=== PATIENT | female | born 1960 | race Asian ===

== ENCOUNTER 2016-12-30 21:01 | Inpatient (IN) | payer MEDICAID ==
[~2016-12-30] VITALS: Ht 162.6 cm; Wt 77.2 kg
[2016-12-30] MEDS ORDERED: METO50 PO (21:08)
[2016-12-30] MEDS ORDERED: LORA0.5T2 PO (21:08)
[2016-12-30] MEDS ORDERED: HYDR25TA PO (21:08)
[2016-12-30] MEDS ORDERED: ISOS30TA6 PO (21:08)
[2016-12-30] MEDS ORDERED: ZOLP5 PO (21:08)
[2016-12-30] MEDS ORDERED: AMLO-512 PO (21:08)
[2016-12-30] MEDS ORDERED: HYDR-4268 TP (21:12)
[2016-12-30 21:17] LABS: GLUCOSE,POINT OF CARE 115 MG/DL (70-110)
[2016-12-30] MEDS ORDERED: SODIUM CHLORIDE 0.9% 1,000 ML IV ONE ×2 (21:30)
[2016-12-30] MEDS ORDERED: 0.9% SODIUM CHLORIDE 10 ML SYRINGE IVP PRN (21:30)
[2016-12-30 21:36] LABS: BASOPHILS # (AUTO) 0.06 K/uL (0.00-0.20); BASOPHILS % (AUTO) 0.5 % (0.0-2.0); EOSINOPHILS # (AUTO) 0.01 K/uL (0.00-0.70); EOSINOPHILS % (AUTO) 0.05 % (1.0-6.0); HEMATOCRIT 45.9 % (36-46); HEMOGLOBIN 14.8 g/dL (12.0-16.0); LYMPHOCYTES # (AUTO) 1.6 K/uL (1.0-4.8); LYMPHOCYTES % (AUTO) 13.1 % (22.0-44.0); MEAN CORPUSCULAR HEMOGLOBIN 24.2 pg (26.0-34.0); MEAN CORPUSCULAR HGB CONC 32.3 G/dL (31.0-37.0); MEAN CORPUSCULAR VOLUME 75 fL (80-100); MONOCYTES # (AUTO) 1.5 K/uL (0.1-1.0); MONOCYTES % (AUTO) 12.3 % (2.0-9.0); NEUTROPHILS % (AUTO) 74.1 % (40.0-70.0); PLATELET COUNT (AUTO) 329 K/uL (150-450); RED BLOOD CELL COUNT(AUTO) 6.14 MIL/uL (4.00-5.20); RED CELL DISTRIBUTION WIDTH 13.3 % (11.5-14.5); WHITE BLOOD COUNT (AUTO) 12.2 K/uL (4.5-11.0)
[2016-12-30 21:48] LABS: ANION GAP 12 mmol/L (8-16); CALCIUM, TOTAL 10.3 mg/dL (8.8-10.5); CARBON DIOXIDE 29 mmol/L (22-29); CHLORIDE 95 mmol/L (98-107); CREATININE 1.84 mg/dL (0.60-1.30); GLOMERULAR FILTR. RATE CALC 28 mL/min (>60); POTASSIUM 4.4 mmol/L (3.5-5.1); SODIUM SERUM 136 mmol/L (136-145); UREA NITROGEN, BLOOD 72 mg/dL (7-18)
[2016-12-30 21:54] LABS: ALANINE AMINOTRANSFERASE 72 U/L (12-78); ALBUMIN 4.6 g/dL (3.4-5.0); ASPARTATE AMINOTRANSFERASE 149 U/L (15-37); BILIRUBIN,TOTAL 1.5 mg/dL (0.1-1.0); TOTAL PROTEIN, SERUM 9.5 g/dL (6.4-8.2)
[2016-12-30 22:06] LABS: APPEARANCE,URINE CLOUDY (CLEAR); GLUCOSE, URINE (UA) 100 mg/dL (NEGATIVE); KETONES,URINE NEGATIVE (NEGATIVE); LEUKOCYTE ESTERASE ,URINE SMALL (NEGATIVE); OCCULT BLOOD,URINE TRACE (NEGATIVE); PH,URINE 5.5 (5.0-8.0); PROTEIN,URINE POS 1+ (NEGATIVE)
[2016-12-30 22:09] LABS: ADD UA MICROSCOPIC YES
[2016-12-30 22:10] LABS: AMORPHOUS SEDIMENT,UR Few /LPF (None Seen); COARSE GRANULAR CASTS,URINE 0-2 /LPF (None Seen); HYALINE CASTS, URINE 0-2 /LPF (None Seen); SQUAMOUS EPITHELIAL CELL,UR Few /LPF (None Seen)
[2016-12-30] MEDS ORDERED: LEVOFLOXACIN 750 MG/D5% WATER 150 ML IV ONE (22:15)
[2016-12-30] MEDS ORDERED: PIPERACILLIN/TAZO 3.375 GM/D5W 50 ML IV ONE (22:15)
[2016-12-30 22:17] LABS: LACTIC ACID 3.3 mmol/L (0.4-2.0)
[2016-12-30 22:25] LABS: RBC MORPHOLOGY COMMENT ABNORMAL RBC MORPH
[2016-12-30 22:38] LABS: PROCALCITONIN (PCT) < 0.05 ng/mL (<0.50)
[2016-12-30 23:31] LABS: REFLEX LACTIC ACID? YES YES
[2016-12-31] MEDS ORDERED: LORazepam 2 MG/ML VIAL IVP ONE (01:00)
[2016-12-31] MEDS ORDERED: ACETAMINOPHEN 1000 MG/ISO-OSM 100 ML IV ONE (01:00)
[2016-12-31 01:32] LABS: GLUCOSE,POINT OF CARE 108 MG/DL (70-110)
[2016-12-31] MEDS ORDERED: HYDROCODONE/ACETAMINOPHEN 5-325 MG TABLET PO PRN ×2 (03:45→08:15)
[2016-12-31] MEDS ORDERED: *CLINICAL-LEVOFLOXACIN IVPB DOSING CLINICAL ONE ×2 (03:45)
[2016-12-31] MEDS ORDERED: ACETAMINOPHEN 325 MG TABLET PO PRN (03:45)
[2016-12-31] MEDS ORDERED: MORPHINE SULFATE 2 MG/ML SYRINGE IVP PRN ×2 (03:45→08:15)
[2016-12-31 05:33] VITALS: BP 152/89
[2016-12-31 07:14] VITALS: BP 158/78
[2016-12-31] MEDS ORDERED: METO100T5 PO (07:44)
[2016-12-31] MEDS ORDERED: PIPERACILLIN/TAZO 3.375 GM/D5W 50 ML IV ONE (08:00)
[2016-12-31 08:15] LABS: BASOPHILS # (AUTO) 0.05 K/uL (0.00-0.20); BASOPHILS % (AUTO) 0.5 % (0.0-2.0); EOSINOPHILS # (AUTO) 0.01 K/uL (0.00-0.70); EOSINOPHILS % (AUTO) 0.11 % (1.0-6.0); HEMATOCRIT 39.7 % (36-46); HEMOGLOBIN 12.7 g/dL (12.0-16.0); LYMPHOCYTES # (AUTO) 1.9 K/uL (1.0-4.8); LYMPHOCYTES % (AUTO) 19.1 % (22.0-44.0); MEAN CORPUSCULAR HEMOGLOBIN 24.2 pg (26.0-34.0); MEAN CORPUSCULAR HGB CONC 32.1 G/dL (31.0-37.0); MEAN CORPUSCULAR VOLUME 75 fL (80-100); MONOCYTES # (AUTO) 1.2 K/uL (0.1-1.0); MONOCYTES % (AUTO) 12.4 % (2.0-9.0); NEUTROPHILS # (AUTO) 6.6 K/uL (1.8-7.7); NEUTROPHILS % (AUTO) 67.9 % (40.0-70.0); PLATELET COUNT (AUTO) 296 K/uL (150-450); RED BLOOD CELL COUNT(AUTO) 5.28 MIL/uL (4.00-5.20); WHITE BLOOD COUNT (AUTO) 9.7 K/uL (4.5-11.0)
[2016-12-31] MEDS ORDERED: ZOLPIDEM TARTRATE 5 MG TABLET PO PRN (08:15)
[2016-12-31] MEDS ORDERED: ONDANSETRON HCL 4 MG/2 ML VIAL IVP PRN (08:15)
[2016-12-31] MEDS ORDERED: IPRATROPIUM BROMIDE 0.5 MG/2.5 ML NEB SOLUTION NEB PRN (08:15)
[2016-12-31] MEDS ORDERED: MAGNESIUM HYDROXIDE SUSPENSION 30 ML UDCUP PO PRN (08:15)
[2016-12-31] MEDS ORDERED: BISACODYL 10 MG RECTAL RECTAL SUPPOSITORY PR PRN (08:15)
[2016-12-31] MEDS ORDERED: ALBUTEROL SULFATE 2.5 MG/0.5 ML NEB SOLUTION NEB PRN (08:15)
[2016-12-31] MEDS ORDERED: CefTRIAXone SODIUM 250 MG in DEXTROSE 5%-WATER 50 ML IV SCH (08:30)
[2016-12-31 08:34] LABS: ALBUMIN 3.6 g/dL (3.4-5.0); BILIRUBIN,TOTAL 1.6 mg/dL (0.1-1.0); CALCIUM, TOTAL 9.2 mg/dL (8.8-10.5); CREATININE 1.33 mg/dL (0.60-1.30); POTASSIUM 3.5 mmol/L (3.5-5.1)
[2016-12-31] MEDS: METOPROLOL TARTRATE 50 MG TABLET PO SCH ×2 (09:00→20:28)
[2016-12-31] MEDS: ASPIRIN 81 MG EC TABLET PO SCH (09:00)
[2016-12-31] MEDS: ISOSORBIDE MONONITRATE 30 MG ER TABLET PO SCH (09:00)
[2016-12-31] MEDS ORDERED: ENOXAPARIN SODIUM 40 MG/0.4 ML PF SYRINGE SQ SCH (09:00)
[2016-12-31] MEDS: DOCUSATE SODIUM 100 MG CAPSULE PO SCH ×2 (09:00→20:28)
[2016-12-31] MEDS: AmLODIPine BESYLATE 10 MG TABLET PO SCH (09:00)
[2016-12-31] MEDS: PANTOPRAZOLE SODIUM 40 MG/VIAL IVP SCH (12:01)
[2016-12-31 12:05] VITALS: BP 156/84
[2016-12-31] MEDS: SODIUM CHLORIDE 0.9% 1,000 ML IV SCH (12:42)
[2016-12-31] MEDS: PIPERACILLIN/TAZO 3.375 GM/D5W 50 ML IV SCH ×2 (13:29→20:26)
[2016-12-31 16:07] VITALS: BP 167/90
[2016-12-31] MEDS: CefTRIAXone 1 GM/DEXTROSE 50 ML IV SCH (18:23)
[2016-12-31] MEDS: OFLOXACIN 0.3% 5 ML OPHTHALMIC SOLUTION OU SCH (20:00)
[2016-12-31] MEDS ORDERED: OFLOXACIN 0.3% 5 ML OPHTHALMIC SOLUTION OU SCH (20:00)
[2016-12-31] MEDS ORDERED: CHOL500050 PO (21:43)
[2016-12-31] MEDS ORDERED: METF500T4 PO (21:43)
[2016-12-31] MEDS ORDERED: ATOR40TA71 PO (21:43)
[2016-12-31] MEDS ORDERED: FENO134C PO (21:43)
[2016-12-31] MEDS ORDERED: FLUO-125 PO (21:43)
[2017-01-01] MEDS: LORazepam 2 MG/ML VIAL IVP PRN ×4 (00:43→20:16)
[2017-01-01] MEDS: OFLOXACIN 0.3% 5 ML OPHTHALMIC SOLUTION OU SCH ×6 (04:00→20:00)
[2017-01-01] MEDS: PIPERACILLIN/TAZO 3.375 GM/D5W 50 ML IV SCH ×3 (04:45→20:34)
[2017-01-01] MEDS: SODIUM CHLORIDE 0.9% 1,000 ML IV SCH (06:42)
[2017-01-01 08:05] VITALS: BP 155/95
[2017-01-01] MEDS ORDERED: ACETAMINOPHEN 650 MG RECTAL SUPPOSITORY PR PRN (09:00)
[2017-01-01] MEDS: AmLODIPine BESYLATE 10 MG TABLET PO SCH (09:00)
[2017-01-01] MEDS: ASPIRIN 81 MG EC TABLET PO SCH (09:00)
[2017-01-01] MEDS: METOPROLOL TARTRATE 50 MG TABLET PO SCH ×2 (09:00→20:47)
[2017-01-01] MEDS: DOCUSATE SODIUM 100 MG CAPSULE PO SCH ×2 (09:00→20:47)
[2017-01-01] MEDS: ISOSORBIDE MONONITRATE 30 MG ER TABLET PO SCH (09:00)
[2017-01-01] MEDS: PANTOPRAZOLE SODIUM 40 MG/VIAL IVP SCH (09:07)
[2017-01-01] MEDS: HEPARIN SODIUM,PORCINE 5,000 UNITS/ML VIAL SQ SCH ×2 (09:23→17:27)
[2017-01-01 11:43] VITALS: BP 158/93
[2017-01-01] MEDS ORDERED: FLUO-191 PO (11:50)
[2017-01-01 12:50] LABS: BASOPHILS % (AUTO) 0.3 % (0.0-2.0); EOSINOPHILS % (AUTO) 0 % (1.0-6.0); HEMATOCRIT 36.5 % (36-46); HEMOGLOBIN 11.9 g/dL (12.0-16.0); LYMPHOCYTES # (AUTO) 1.2 K/uL (1.0-4.8); MEAN CORPUSCULAR HEMOGLOBIN 24.4 pg (26.0-34.0); MEAN CORPUSCULAR HGB CONC 32.6 G/dL (31.0-37.0); MEAN CORPUSCULAR VOLUME 75 fL (80-100); MONOCYTES # (AUTO) 0.9 K/uL (0.1-1.0); MONOCYTES % (AUTO) 15.4 % (2.0-9.0); NEUTROPHILS # (AUTO) 3.8 K/uL (1.8-7.7); NEUTROPHILS % (AUTO) 64.3 % (40.0-70.0); PLATELET COUNT (AUTO) 281 K/uL (150-450); RED BLOOD CELL COUNT(AUTO) 4.88 MIL/uL (4.00-5.20); RED CELL DISTRIBUTION WIDTH 13.9 % (11.5-14.5)
[2017-01-01 13:03] LABS: CREATININE 1.27 mg/dL (0.60-1.30); MAGNESIUM 2.2 mg/dL (1.80-2.40); PHOSPHORUS 2.3 mg/dL (2.5-4.9); POTASSIUM 3.6 mmol/L (3.5-5.1)
[2017-01-01 14:27] LABS: RBC MORPHOLOGY COMMENT ABNORMAL RBC MORPH
[2017-01-01 15:39] VITALS: BP 158/89
[2017-01-01] MEDS: CefTRIAXone 1 GM/DEXTROSE 50 ML IV SCH (17:27)
[2017-01-01 19:59] VITALS: BP 109/77
[2017-01-01] MEDS: ACETAMINOPHEN 325 MG TABLET PO PRN (20:46)
[2017-01-01] MEDS ORDERED: ACETAMINOPHEN 1000 MG/ISO-OSM 100 ML IV ONE (22:00)
[2017-01-01 23:32] VITALS: BP 148/83
[2017-01-02] MEDS: SODIUM CHLORIDE 0.9% 1,000 ML IV SCH (01:43)
[2017-01-02] MEDS: OFLOXACIN 0.3% 5 ML OPHTHALMIC SOLUTION OU SCH ×6 (04:00→21:42)
[2017-01-02 04:32] VITALS: BP 129/78
[2017-01-02] MEDS: PIPERACILLIN/TAZO 3.375 GM/D5W 50 ML IV SCH ×3 (05:08→21:29)
[2017-01-02 07:08] LABS: BASOPHILS # (AUTO) 0.02 K/uL (0.00-0.20); BASOPHILS % (AUTO) 0.3 % (0.0-2.0); EOSINOPHILS # (AUTO) 0.01 K/uL (0.00-0.70); HEMATOCRIT 35.9 % (36-46); HEMOGLOBIN 11.5 g/dL (12.0-16.0); LYMPHOCYTES # (AUTO) 1.9 K/uL (1.0-4.8); LYMPHOCYTES % (AUTO) 27.2 % (22.0-44.0); MEAN CORPUSCULAR HEMOGLOBIN 24.3 pg (26.0-34.0); MEAN CORPUSCULAR HGB CONC 31.9 G/dL (31.0-37.0); MEAN CORPUSCULAR VOLUME 76 fL (80-100); MONOCYTES # (AUTO) 1.2 K/uL (0.1-1.0); MONOCYTES % (AUTO) 16.9 % (2.0-9.0); NEUTROPHILS # (AUTO) 3.9 K/uL (1.8-7.7); NEUTROPHILS % (AUTO) 55.5 % (40.0-70.0); PLATELET COUNT (AUTO) 271 K/uL (150-450); RED BLOOD CELL COUNT(AUTO) 4.72 MIL/uL (4.00-5.20); RED CELL DISTRIBUTION WIDTH 13.7 % (11.5-14.5)
[2017-01-02 07:36] VITALS: BP 152/84
[2017-01-02 07:36] LABS: ALBUMIN 3.2 g/dL (3.4-5.0); BILIRUBIN,TOTAL 1.1 mg/dL (0.1-1.0); CREATININE 1.24 mg/dL (0.60-1.30); MAGNESIUM 2.4 mg/dL (1.80-2.40); POTASSIUM 3.7 mmol/L (3.5-5.1); TOTAL PROTEIN, SERUM 7.2 g/dL (6.4-8.2)
[2017-01-02] MEDS: ASPIRIN 81 MG EC TABLET PO SCH (09:00)
[2017-01-02] MEDS: METOPROLOL TARTRATE 50 MG TABLET PO SCH ×2 (09:00→21:43)
[2017-01-02] MEDS: AmLODIPine BESYLATE 10 MG TABLET PO SCH (09:00)
[2017-01-02] MEDS: ISOSORBIDE MONONITRATE 30 MG ER TABLET PO SCH (09:00)
[2017-01-02] MEDS: DOCUSATE SODIUM 100 MG CAPSULE PO SCH ×2 (09:00→21:44)
[2017-01-02] MEDS ORDERED: BARIUM SULFATE 0.1% SUSPENSION 450 ML BOTTLE ONE (09:30)
[2017-01-02] MEDS: PANTOPRAZOLE SODIUM 40 MG/VIAL IVP SCH (09:50)
[2017-01-02] MEDS: HEPARIN SODIUM,PORCINE 5,000 UNITS/ML VIAL SQ SCH ×3 (09:51→16:30)
[2017-01-02] MEDS: LORazepam 2 MG/ML VIAL IVP PRN ×2 (09:52→13:46)
[2017-01-02 10:57] VITALS: BP 124/62
[2017-01-02 12:57] LABS: CREATININE, URINE (mALB) 113.3 mg/dL (Not Estab.)
[2017-01-02] MEDS ORDERED: IOVERSOL 350 MG/ML 100 ML VIAL ONE (13:29)
[2017-01-02] MEDS ORDERED: SODIUM CHLORIDE 0.9% 100 ML ONE (13:29)
[2017-01-02 15:57] VITALS: BP 127/56
[2017-01-02] MEDS: CefTRIAXone 1 GM/DEXTROSE 50 ML IV SCH (16:30)
[2017-01-02 19:43] VITALS: BP 145/90
[2017-01-02 23:44] LABS: CALCIUM, TOTAL 8.7 mg/dL (8.8-10.5); CREATININE 1.03 mg/dL (0.60-1.30); POTASSIUM 3.4 mmol/L (3.5-5.1)
[2017-01-02 23:48] LABS: MAGNESIUM 2.1 mg/dL (1.80-2.40); PHOSPHORUS 3.1 mg/dL (2.5-4.9)
[2017-01-03] MEDS: ACETAMINOPHEN 325 MG TABLET PO PRN (00:02)
[2017-01-03] MEDS: LORazepam 2 MG/ML VIAL IVP PRN ×4 (00:04→15:56)
[2017-01-03 00:09] VITALS: BP 133/73
[2017-01-03] MEDS ORDERED: POTASSIUM CHLORIDE 20 MEQ ER TABLET PO PRN ×2 (00:30)
[2017-01-03] MEDS ORDERED: POTASSIUM CHLORIDE 10% 40 MEQ/30 ML LIQUID UDCUP NG PRN (01:30)
[2017-01-03] MEDS: OFLOXACIN 0.3% 5 ML OPHTHALMIC SOLUTION OU SCH ×7 (01:40→23:49)
[2017-01-03] MEDS: HEPARIN SODIUM,PORCINE 5,000 UNITS/ML VIAL SQ SCH ×4 (01:40→23:49)
[2017-01-03] MEDS ORDERED: SODIUM CHLORIDE 0.9% 500 ML IV ONE (02:42)
[2017-01-03] MEDS: LEVOFLOXACIN 250 MG/D5% WATER 50 ML IV SCH (02:52)
[2017-01-03 05:46] VITALS: BP 151/75
[2017-01-03] MEDS ORDERED: DEXTROSE 5%-WATER 1,000 ML IV ONE (06:45)
[2017-01-03 06:46] LABS: BASOPHILS % (AUTO) 0.3 % (0.0-2.0); EOSINOPHILS % (AUTO) 1.7 % (1.0-6.0); HEMOGLOBIN 11.9 g/dL (12.0-16.0); LYMPHOCYTES % (AUTO) 28.7 % (22.0-44.0); MEAN CORPUSCULAR VOLUME 76 fL (80-100); MONOCYTES # (AUTO) 0.7 K/uL (0.1-1.0); MONOCYTES % (AUTO) 9.9 % (2.0-9.0); NEUTROPHILS # (AUTO) 4.1 K/uL (1.8-7.7); NEUTROPHILS % (AUTO) 59.4 % (40.0-70.0); PLATELET COUNT (AUTO) 250 K/uL (150-450); RED BLOOD CELL COUNT(AUTO) 4.75 MIL/uL (4.00-5.20); RED CELL DISTRIBUTION WIDTH 14.2 % (11.5-14.5); WHITE BLOOD COUNT (AUTO) 6.9 K/uL (4.5-11.0)
[2017-01-03 07:20] LABS: ALBUMIN 3.1 g/dL (3.4-5.0); BILIRUBIN,TOTAL 0.9 mg/dL (0.1-1.0); CALCIUM, TOTAL 8.9 mg/dL (8.8-10.5); CREATININE 0.96 mg/dL (0.60-1.30); MAGNESIUM 2.1 mg/dL (1.80-2.40); POTASSIUM 3.9 mmol/L (3.5-5.1); TOTAL PROTEIN, SERUM 6.6 g/dL (6.4-8.2)
[2017-01-03 07:55] VITALS: BP 144/99
[2017-01-03] MEDS: DOCUSATE SODIUM 100 MG CAPSULE PO SCH ×2 (08:15→21:00)
[2017-01-03] MEDS: PANTOPRAZOLE SODIUM 40 MG/VIAL IVP SCH (08:15)
[2017-01-03] MEDS: ISOSORBIDE MONONITRATE 30 MG ER TABLET PO SCH (08:16)
[2017-01-03] MEDS: METOPROLOL TARTRATE 50 MG TABLET PO SCH ×2 (08:16→21:52)
[2017-01-03] MEDS: AmLODIPine BESYLATE 10 MG TABLET PO SCH (08:16)
[2017-01-03] MEDS: ASPIRIN 81 MG EC TABLET PO SCH (08:16)
[2017-01-03] MEDS: DEXTROSE 5%-WATER 1,000 ML IV SCH ×2 (09:18→23:45)
[2017-01-03 11:58] VITALS: BP 103/65
[2017-01-03 13:08] LABS: APPEARANCE,URINE CLOUDY (CLEAR); GLUCOSE, URINE (UA) 250 mg/dL (NEGATIVE); KETONES,URINE TRACE mg/dL (NEGATIVE); LEUKOCYTE ESTERASE ,URINE NEGATIVE (NEGATIVE); OCCULT BLOOD,URINE LARGE (NEGATIVE); PROTEIN,URINE NEGATIVE (NEGATIVE)
[2017-01-03 13:10] LABS: ADD UA MICROSCOPIC YES
[2017-01-03 13:13] LABS: RBC,URINE 26-50 /HPF (0-2); WBC,URINE 0-2 /HPF (0-5)
[2017-01-03 13:14] LABS: SQUAMOUS EPITHELIAL CELL,UR Rare /LPF (None Seen)
[2017-01-03 13:15] LABS: COARSE GRANULAR CASTS,URINE 0-2 /LPF (None Seen); HYALINE CASTS, URINE 0-2 /LPF (None Seen)
[2017-01-03 13:17] LABS: FINE GRANULAR CASTS,URINE 0-2 /LPF (None Seen)
[2017-01-03 15:27] VITALS: BP 136/87
[2017-01-03] MEDS: CefTRIAXone 1 GM/DEXTROSE 50 ML IV SCH (16:26)
[2017-01-03 20:06] VITALS: BP 126/81
[2017-01-04 00:32] VITALS: BP 134/77
[2017-01-04] MEDS: LEVOFLOXACIN 250 MG/D5% WATER 50 ML IV SCH (01:35)
[2017-01-04] MEDS: OFLOXACIN 0.3% 5 ML OPHTHALMIC SOLUTION OU SCH ×5 (04:05→20:28)
[2017-01-04 04:32] VITALS: BP 145/89
[2017-01-04 07:41] VITALS: BP 162/93
[2017-01-04] MEDS: PANTOPRAZOLE SODIUM 40 MG/VIAL IVP SCH (09:01)
[2017-01-04] MEDS: DOCUSATE SODIUM 100 MG CAPSULE PO SCH ×2 (09:02→20:30)
[2017-01-04] MEDS: HEPARIN SODIUM,PORCINE 5,000 UNITS/ML VIAL SQ SCH ×2 (09:02→17:09)
[2017-01-04] MEDS: ISOSORBIDE MONONITRATE 30 MG ER TABLET PO SCH (09:03)
[2017-01-04] MEDS: ASPIRIN 81 MG EC TABLET PO SCH (09:03)
[2017-01-04] MEDS: METOPROLOL TARTRATE 50 MG TABLET PO SCH ×2 (09:04→20:29)
[2017-01-04] MEDS: AmLODIPine BESYLATE 10 MG TABLET PO SCH (09:04)
[2017-01-04 11:37] VITALS: BP 119/79
[2017-01-04] MEDS: LORazepam 2 MG/ML VIAL IVP PRN (15:12)
[2017-01-04] MEDS: DEXTROSE 5%-WATER 1,000 ML IV SCH (15:15)
[2017-01-04 15:22] VITALS: BP 153/73
[2017-01-04] MEDS: CefTRIAXone 1 GM/DEXTROSE 50 ML IV SCH (17:10)
[2017-01-04 20:13] VITALS: BP 143/89
[2017-01-04] MEDS: OXYGEN THERAPY IH SCH (20:28)
[2017-01-05] MEDS: OFLOXACIN 0.3% 5 ML OPHTHALMIC SOLUTION OU SCH ×7 (00:08→23:32)
[2017-01-05] MEDS: HEPARIN SODIUM,PORCINE 5,000 UNITS/ML VIAL SQ SCH ×4 (00:08→23:31)
[2017-01-05 00:24] VITALS: BP 138/66
[2017-01-05] MEDS: LEVOFLOXACIN 250 MG/D5% WATER 50 ML IV SCH (02:05)
[2017-01-05] MEDS: LORazepam 2 MG/ML VIAL IVP PRN (02:16)
[2017-01-05] MEDS: DEXTROSE 5%-WATER 1,000 ML IV SCH ×2 (03:51→17:21)
[2017-01-05 04:41] VITALS: BP 148/88
[2017-01-05 07:56] VITALS: BP 160/84
[2017-01-05] MEDS: DOCUSATE SODIUM 100 MG CAPSULE PO SCH ×2 (09:00→19:57)
[2017-01-05 11:25] VITALS: BP 150/89
[2017-01-05] MEDS: PANTOPRAZOLE SODIUM 40 MG/VIAL IVP SCH (11:32)
[2017-01-05] MEDS: ASPIRIN 81 MG EC TABLET PO SCH (11:34)
[2017-01-05] MEDS: AmLODIPine BESYLATE 10 MG TABLET PO SCH (11:34)
[2017-01-05] MEDS: ISOSORBIDE MONONITRATE 30 MG ER TABLET PO SCH (11:34)
[2017-01-05] MEDS: METOPROLOL TARTRATE 50 MG TABLET PO SCH ×2 (11:35→21:33)
[2017-01-05] MEDS: OXYGEN THERAPY IH SCH ×2 (14:49→20:00)
[2017-01-05 15:07] VITALS: BP 142/75
[2017-01-05] MEDS: HydrALAZINE HCL 25 MG TABLET PO SCH ×2 (16:21→19:56)
[2017-01-05] MEDS: CefTRIAXone 1 GM/DEXTROSE 50 ML IV SCH (16:29)
[2017-01-05 16:52] LABS: ANION GAP 8 mmol/L (8-16); CALCIUM, TOTAL 8.7 mg/dL (8.8-10.5); CARBON DIOXIDE 29 mmol/L (22-29); CHLORIDE 101 mmol/L (98-107); CREATININE 0.83 mg/dL (0.60-1.30); GLOMERULAR FILTR. RATE CALC > 60 mL/min (>60); SODIUM SERUM 138 mmol/L (136-145); UREA NITROGEN, BLOOD 8 mg/dL (7-18)
[2017-01-05 17:01] LABS: POTASSIUM 2.9 mmol/L (3.5-5.1)
[2017-01-05] MEDS: POTASSIUM CHL 10 MEQ/WATER 50 ML IV PRN ×2 (17:20→21:33)
[2017-01-05 19:21] VITALS: BP 129/79
[2017-01-06 00:09] VITALS: BP 124/78
[2017-01-06] MEDS: OFLOXACIN 0.3% 5 ML OPHTHALMIC SOLUTION OU SCH ×5 (03:49→21:06)
[2017-01-06 04:38] VITALS: BP 142/84
[2017-01-06 06:14] LABS: BASOPHILS % (AUTO) 0.3 % (0.0-2.0); HEMATOCRIT 33.8 % (36-46); HEMOGLOBIN 11.3 g/dL (12.0-16.0); LYMPHOCYTES # (AUTO) 1.9 K/uL (1.0-4.8); LYMPHOCYTES % (AUTO) 36.7 % (22.0-44.0); MEAN CORPUSCULAR HEMOGLOBIN 24.8 pg (26.0-34.0); MEAN CORPUSCULAR HGB CONC 33.3 G/dL (31.0-37.0); MEAN CORPUSCULAR VOLUME 75 fL (80-100); MONOCYTES # (AUTO) 0.5 K/uL (0.1-1.0); MONOCYTES % (AUTO) 9.1 % (2.0-9.0); NEUTROPHILS # (AUTO) 2.5 K/uL (1.8-7.7); NEUTROPHILS % (AUTO) 48.9 % (40.0-70.0); PLATELET COUNT (AUTO) 224 K/uL (150-450); RED BLOOD CELL COUNT(AUTO) 4.54 MIL/uL (4.00-5.20); RED CELL DISTRIBUTION WIDTH 13.7 % (11.5-14.5); WHITE BLOOD COUNT (AUTO) 5.2 K/uL (4.5-11.0)
[2017-01-06 06:39] LABS: ALANINE AMINOTRANSFERASE 86 U/L (12-78); ALBUMIN 3.1 g/dL (3.4-5.0); ANION GAP 7 mmol/L (8-16); ASPARTATE AMINOTRANSFERASE 69 U/L (15-37); BILIRUBIN,TOTAL 0.6 mg/dL (0.1-1.0); CALCIUM, TOTAL 8.8 mg/dL (8.8-10.5); CARBON DIOXIDE 29 mmol/L (22-29); CHLORIDE 104 mmol/L (98-107); CREATININE 0.69 mg/dL (0.60-1.30); GLOMERULAR FILTR. RATE CALC > 60 mL/min (>60); POTASSIUM 3.6 mmol/L (3.5-5.1); SODIUM SERUM 140 mmol/L (136-145); TOTAL PROTEIN, SERUM 6.2 g/dL (6.4-8.2); UREA NITROGEN, BLOOD 8 mg/dL (7-18)
[2017-01-06 06:49] LABS: RBC MORPHOLOGY COMMENT ABNORMAL RBC MORPH
[2017-01-06 07:29] VITALS: BP 152/87
[2017-01-06] MEDS: OXYGEN THERAPY IH SCH ×2 (08:00→20:00)
[2017-01-06] MEDS: PANTOPRAZOLE SODIUM 40 MG/VIAL IVP SCH (08:22)
[2017-01-06] MEDS: HEPARIN SODIUM,PORCINE 5,000 UNITS/ML VIAL SQ SCH ×2 (08:24→17:04)
[2017-01-06] MEDS: AmLODIPine BESYLATE 10 MG TABLET PO SCH (08:25)
[2017-01-06] MEDS: METOPROLOL TARTRATE 50 MG TABLET PO SCH ×2 (08:25→21:06)
[2017-01-06] MEDS: ASPIRIN 81 MG EC TABLET PO SCH (08:26)
[2017-01-06] MEDS: DOCUSATE SODIUM 100 MG CAPSULE PO SCH ×2 (08:26→21:06)
[2017-01-06] MEDS: HydrALAZINE HCL 25 MG TABLET PO SCH ×3 (08:26→21:06)
[2017-01-06 11:35] VITALS: BP 122/79
[2017-01-06] MEDS: ISOSORBIDE MONONITRATE 30 MG ER TABLET PO SCH (14:49)
[2017-01-06 15:28] VITALS: BP 133/75
[2017-01-06] MEDS ORDERED: DSS100 PO (16:29)
[2017-01-06] MEDS ORDERED: ASPI-1093 PO (16:29)
[2017-01-06] MEDS ORDERED: HYDR25 PO (16:31)
[2017-01-06] MEDS ORDERED: HEPA500017 SQ (16:31)
[2017-01-06] MEDS ORDERED: OFLO35OS OU (16:32)
[2017-01-06] MEDS ORDERED: PANT40TA25 PO (16:33)
[2017-01-06] MEDS ORDERED: ACET-2902 PO (16:33)
[2017-01-06] MEDS ORDERED: AUD NEB (16:34)
[2017-01-06] MEDS ORDERED: HYDR-3965 PO (16:35)
[2017-01-06] MEDS ORDERED: BISA5TAB12 PO (16:35)
[2017-01-06] MEDS ORDERED: IPRNEB NEB (16:36)
[2017-01-06] MEDS ORDERED: MAGN400O52 PO (16:37)
[2017-01-06] MEDS ORDERED: CEFX1I IV (16:41)
[2017-01-06] MEDS: CefTRIAXone 1 GM/DEXTROSE 50 ML IV SCH (17:06)
[2017-01-06 20:08] VITALS: BP 125/79
[2017-01-07 00:17] VITALS: BP 120/74
[2017-01-07] MEDS: HEPARIN SODIUM,PORCINE 5,000 UNITS/ML VIAL SQ SCH ×2 (00:37→08:08)
[2017-01-07] MEDS: OFLOXACIN 0.3% 5 ML OPHTHALMIC SOLUTION OU SCH ×3 (00:38→08:19)
[2017-01-07 04:23] VITALS: BP 132/77
[2017-01-07 07:47] VITALS: BP 125/64
[2017-01-07] MEDS: METOPROLOL TARTRATE 50 MG TABLET PO SCH (08:07)
[2017-01-07] MEDS: ASPIRIN 81 MG EC TABLET PO SCH (08:07)
[2017-01-07] MEDS: ISOSORBIDE MONONITRATE 30 MG ER TABLET PO SCH (08:07)
[2017-01-07] MEDS: PANTOPRAZOLE SODIUM 40 MG/VIAL IVP SCH (08:08)
[2017-01-07] MEDS: DOCUSATE SODIUM 100 MG CAPSULE PO SCH (08:12)
[2017-01-07] MEDS: OXYGEN THERAPY IH SCH (10:41)
[2017-01-07] MEDS: AmLODIPine BESYLATE 10 MG TABLET PO SCH (10:43)
[2017-01-07] MEDS: HydrALAZINE HCL 25 MG TABLET PO SCH (10:43)
[2017-01-07] MEDS ORDERED: PNEUMOCOCCAL VACCINE POLYVALENT 0.5 ML VIAL [PPSV23] IM ONE (10:45)
[2017-01-07 10:57] VITALS: BP 145/82
[2017-01-08 17:58] LABS: GLUCOSE,POINT OF CARE 71 MG/DL (70-110)
== END 2017-01-07 11:35 | DRG 720 ==
LOC: EMS 21:02 → 5N 12-31 04:24
PROVIDERS: ADMIT Hospitalist; ATTEND Hospitalist
DX: A41.9 Sepsis, unspecified organism (principal); N17.0 Acute kidney failure with tubular necrosis; I63.9 Cerebral infarction, unspecified; G93.41 Metabolic encephalopathy; E87.0 Hyperosmolality and hypernatremia; N39.0 Urinary tract infection, site not specified; H10.89 Other conjunctivitis; I48.91 Unspecified atrial fibrillation; E11.22 Type 2 diabetes mellitus with diabetic chronic kidney disease; E78.5 Hyperlipidemia, unspecified; N18.9 Chronic kidney disease, unspecified; I12.9 Hypertensive chronic kidney disease with stage 1 through stage 4 chronic kidney disease, or unspecified chronic kidney disease; E78.00 Pure hypercholesterolemia, unspecified; F41.9 Anxiety disorder, unspecified; F29 Unspecified psychosis not due to a substance or known physiological condition; R74.8 Abnormal levels of other serum enzymes; K63.89 Other specified diseases of intestine; B96.20 Unspecified Escherichia coli [E. coli] as the cause of diseases classified elsewhere; F17.210 Nicotine dependence, cigarettes, uncomplicated; Z79.899 Other long term (current) drug therapy; Z79.891 Long term (current) use of opiate analgesic; Z28.21 Immunization not carried out because of patient refusal
CPT/HCPCS: 70450; 70544; 70551; 74177; 76770; 82043; 82570; 82962; 83605; 83735; 84100; 84145; 84156; 84300; 84540; 87040; 87086; 89050; 90471; 93005; 93306; 93880; 96361; 96365; 96367; 96375; 97110; 97116; 97162; 97167; 97530; 97535; 99291; C9113; J0131; J0696; J1644; J1650; J1956; J2060; J2405; J2543; J3480; J7030; J7040; J7050; J7060

== ENCOUNTER 2018-09-01 11:01 | Inpatient (IN) | payer MEDICAID ==
[~2018-09-01] VITALS: Ht 162.6 cm; Wt 79.2 kg
[~2018-09-01 11:01] MED LIST: ACET-2902 PO; AMLO-512 PO; ASPI-1182 PO; AUD NEB; BISA5TAB12 PO; CEFX1I IV; DSS100 PO; HEPA500018 SQ; HYDR-4061 PO; HYDR25TA84 PO; IPRNEB NEB; ISOS30TA6 PO; MAGN400O52 PO; METO100T14 PO; OFLO35OS OU; PANT40TA25 PO
[2018-09-01 11:34] LABS: GLUCOSE,POINT OF CARE 133 MG/DL (70-110)
[2018-09-01] MEDS ORDERED: HALOPERIDOL LACTATE 5 MG/ML VIAL IM ONE (13:00)
[2018-09-01] MEDS ORDERED: LORazepam 2 MG/ML VIAL IM ONE (13:00)
[2018-09-01] MEDS ORDERED: DiphenhydrAMINE HCL 50 MG/ML VIAL IM ONE (13:00)
[2018-09-01] MEDS ORDERED: LORazepam 2 MG TABLET PO PRN (13:30)
[2018-09-01] MEDS ORDERED: ZOLPIDEM TARTRATE 10 MG TABLET PO PRN (13:30)
[2018-09-01] MEDS ORDERED: HALOPERIDOL 5 MG TABLET PO PRN (13:30)
[2018-09-01] MEDS ORDERED: ACETAMINOPHEN 325 MG TABLET PO PRN ×2 (13:45→20:30)
[2018-09-01] MEDS ORDERED: IBUPROFEN 400 MG TABLET PO PRN (13:45)
[2018-09-01 13:54] LABS: BASOPHILS % (AUTO) 0.6 % (0.0-2.0); EOSINOPHILS % (AUTO) 2.1 % (1.0-6.0); HEMATOCRIT 45.6 % (36-46); HEMOGLOBIN 15.8 g/dL (12.0-16.0); LYMPHOCYTES # (AUTO) 1.3 K/uL (1.0-4.8); LYMPHOCYTES % (AUTO) 22.6 % (22.0-44.0); MEAN CORPUSCULAR HEMOGLOBIN 24.2 pg (26.0-34.0); MEAN CORPUSCULAR HGB CONC 34.7 G/dL (31.0-37.0); MEAN CORPUSCULAR VOLUME 70 fL (80-100); MONOCYTES # (AUTO) 0.8 K/uL (0.1-1.0); MONOCYTES % (AUTO) 13.5 % (2.0-9.0); NEUTROPHILS # (AUTO) 3.6 K/uL (1.8-7.7); NEUTROPHILS % (AUTO) 61.2 % (40.0-70.0); PLATELET COUNT (AUTO) 284 K/uL (150-450); RED BLOOD CELL COUNT(AUTO) 6.52 MIL/uL (4.00-5.20); RED CELL DISTRIBUTION WIDTH 14.4 % (11.5-14.5)
[2018-09-01 14:15] LABS: ALANINE AMINOTRANSFERASE 186 U/L (12-78); ALBUMIN 4.7 g/dL (3.4-5.0); ALKALINE PHOSPHATASE 56 U/L (46-116); ANION GAP 14 mmol/L (8-16); ASPARTATE AMINOTRANSFERASE 122 U/L (15-37); BILIRUBIN,TOTAL 1.5 mg/dL (0.1-1.0); CALCIUM, TOTAL 9.6 mg/dL (8.8-10.5); CARBON DIOXIDE 26 mmol/L (22-29); CHLORIDE 82 mmol/L (98-107); GLOMERULAR FILTR. RATE CALC 46 mL/min (>60); GLUCOSE,RANDOM 111 mg/dL (70-110); THYROID STIMULATING HORMONE 0.55 uIU/mL (0.36-3.74); TOTAL PROTEIN, SERUM 8.6 g/dL (6.4-8.2); UREA NITROGEN, BLOOD 11 mg/dL (7-18)
[2018-09-01 14:17] LABS: SODIUM SERUM 122 mmol/L (136-145)
[2018-09-01 14:18] LABS: POTASSIUM 2.9 mmol/L (3.5-5.1)
[2018-09-01] MEDS ORDERED: SODIUM CHLORIDE 0.9% 1,000 ML IV ONE ×2 (14:30→20:30)
[2018-09-01] MEDS ORDERED: POTASSIUM CHLORIDE 20 MEQ ER TABLET PO ONE (14:30)
[2018-09-01] MEDS: POTASSIUM CHL 10 MEQ/WATER 50 ML IV SCH ×2 (15:30→17:00)
[2018-09-01 16:37] LABS: OSMOLALITY 264 mOS/kg (270-310)
[2018-09-01 17:38] VITALS: BP 122/73
[2018-09-01 19:49] VITALS: BP 104/69
[2018-09-01] MEDS ORDERED: MAGNESIUM HYDROXIDE SUSPENSION 30 ML UDCUP PO PRN (20:30)
[2018-09-01] MEDS ORDERED: POTASSIUM CHLORIDE 20 MEQ ER TABLET PO PRN (20:30)
[2018-09-01] MEDS ORDERED: DEXTROSE 50%-WATER 25 GM/50 ML SYRINGE IVP PRN (20:30)
[2018-09-01 20:44] LABS: CALCIUM, TOTAL 9.2 mg/dL (8.8-10.5); CREATININE 0.96 mg/dL (0.60-1.30); POTASSIUM 3.5 mmol/L (3.5-5.1)
[2018-09-01] MEDS: DOCUSATE SODIUM 100 MG CAPSULE PO SCH (21:00)
[2018-09-01] MEDS: FAMOTIDINE 20 MG TABLET PO SCH (21:00)
[2018-09-01 21:36] LABS: APPEARANCE,URINE CLOUDY (CLEAR); GLUCOSE, URINE (UA) NEGATIVE (NEGATIVE); KETONES,URINE 15 mg/dL (NEGATIVE); LEUKOCYTE ESTERASE ,URINE SMALL (NEGATIVE); NITRATE,URINE NEGATIVE (NEGATIVE); OCCULT BLOOD,URINE SMALL (NEGATIVE); PROTEIN,URINE SEE CONFIRM (NEGATIVE); UROBILINOGEN,URINE 0.2 mg/dL (<=1.0)
[2018-09-01 21:42] LABS: AMPHET/METH SCREEN,URINE NEGATIVE (NEGATIVE); BARBITURATE SCREEN, URINE NEGATIVE (NEGATIVE); BENZODIAZEPINES SCREEN,URINE NEGATIVE (NEGATIVE); CANNABINOID SCREEN,URINE NEGATIVE (NEGATIVE); COCAINE SCREEN,URINE NEGATIVE (NEGATIVE); METHADONE SCREEN, URINE NEGATIVE (NEGATIVE); OPIATE SCREEN,URINE NEGATIVE (NEGATIVE)
[2018-09-01 21:43] LABS: PHENCYCLIDINE SCREEN,URINE NEGATIVE (NEGATIVE)
[2018-09-01 21:45] LABS: BILIRUBIN,URINE PRELIM. POSITIVE (NEGATIVE)
[2018-09-01 21:47] LABS: OSMOLALITY,URINE 425 mOS/kg (50-1200)
[2018-09-01 21:56] LABS: SULFOSALICYLIC ACID,URINE 3+ (Negative)
[2018-09-01 21:58] LABS: SODIUM,URINE RANDOM < 5 mmol/l (20-110)
[2018-09-01 22:00] LABS: BACTERIA,URINE Moderate /HPF (None Seen); RBC,URINE 0-2 /HPF (0-2)
[2018-09-01 22:01] LABS: SQUAMOUS EPITHELIAL CELL,UR Moderate /LPF (None Seen)
[2018-09-01 22:04] LABS: RENAL EPITHELIAL CELLS,URINE Few /LPF (None Seen)
[2018-09-01 22:29] LABS: GLUCOMETER DEV NAME(LOC) 5S.1; GLUCOSE,POINT OF CARE 93 MG/DL (70-110)
[2018-09-01] MEDS: ALBUTEROL SULFATE 2.5 MG/0.5 ML NEB SOLUTION NEB SCH (23:00)
[2018-09-02] VITALS (7 sets, daily range): BP systolic 104–131; BP diastolic 51–75
[2018-09-02] MEDS ORDERED: 0.9% SODIUM CHLORIDE 5 ML NEB SOLUTION NEB ONE ×6 (01:37→23:19)
[2018-09-02] MEDS: HEPARIN SODIUM,PORCINE 5,000 UNITS/ML VIAL SQ SCH ×4 (01:38→23:16)
[2018-09-02] MEDS: ALBUTEROL SULFATE 2.5 MG/0.5 ML NEB SOLUTION NEB SCH ×6 (01:42→23:26)
[2018-09-02] MEDS ORDERED: SODIUM CHLORIDE 0.9% 500 ML IV ONE (02:52)
[2018-09-02] MEDS: POTASSIUM CHL 10 MEQ/WATER 50 ML IV PRN ×2 (02:54→03:12)
[2018-09-02 07:01] LABS: BASOPHILS % (AUTO) 1.2 % (0.0-2.0); EOSINOPHILS % (AUTO) 4.2 % (1.0-6.0); HEMATOCRIT 42.1 % (36-46); HEMOGLOBIN 14.6 g/dL (12.0-16.0); LYMPHOCYTES # (AUTO) 1.6 K/uL (1.0-4.8); LYMPHOCYTES % (AUTO) 29.4 % (22.0-44.0); MEAN CORPUSCULAR HEMOGLOBIN 24.9 pg (26.0-34.0); MEAN CORPUSCULAR HGB CONC 34.7 G/dL (31.0-37.0); MEAN CORPUSCULAR VOLUME 72 fL (80-100); MONOCYTES # (AUTO) 0.8 K/uL (0.1-1.0); MONOCYTES % (AUTO) 15.9 % (2.0-9.0); NEUTROPHILS # (AUTO) 2.6 K/uL (1.8-7.7); NEUTROPHILS % (AUTO) 49.3 % (40.0-70.0); PLATELET COUNT (AUTO) 233 K/uL (150-450); RED BLOOD CELL COUNT(AUTO) 5.87 MIL/uL (4.00-5.20); RED CELL DISTRIBUTION WIDTH 14.8 % (11.5-14.5)
[2018-09-02 07:02] LABS: HEMOGLOBIN A1C 6.5 % (4.5-6.2)
[2018-09-02 07:22] LABS: ALBUMIN 3.9 g/dL (3.4-5.0); BILIRUBIN,TOTAL 1.4 mg/dL (0.1-1.0); CALCIUM, TOTAL 8.9 mg/dL (8.8-10.5); CHOL/HDL RATIO 1.6 (3.9-5.7); CREATININE 0.98 mg/dL (0.60-1.30); POTASSIUM 3.8 mmol/L (3.5-5.1); TOTAL PROTEIN, SERUM 7.4 g/dL (6.4-8.2)
[2018-09-02 07:23] LABS: THYROID STIMULATING HORMONE 0.33 uIU/mL (0.36-3.74)
[2018-09-02] MEDS: FAMOTIDINE 20 MG TABLET PO SCH ×2 (08:53→20:28)
[2018-09-02] MEDS: DOCUSATE SODIUM 100 MG CAPSULE PO SCH ×2 (08:53→20:28)
[2018-09-02 10:59] LABS: GLUCOMETER DEV NAME(LOC) 5S.1; GLUCOSE,POINT OF CARE 86 MG/DL (70-110)
[2018-09-02 11:40] LABS: ANION GAP 10 mmol/L (8-16); CALCIUM, TOTAL 8.8 mg/dL (8.8-10.5); CARBON DIOXIDE 24 mmol/L (22-29); CHLORIDE 93 mmol/L (98-107); CREATININE 0.74 mg/dL (0.60-1.30); GLOMERULAR FILTR. RATE CALC > 60 mL/min (>60); GLUCOSE,RANDOM 76 mg/dL (70-110); POTASSIUM 4.1 mmol/L (3.5-5.1); SODIUM SERUM 127 mmol/L (136-145); UREA NITROGEN, BLOOD 11 mg/dL (7-18)
[2018-09-02 12:20] LABS: OSMOLALITY 275 mOS/kg (270-310)
[2018-09-02 12:28] LABS: OSMOLALITY,URINE 85 mOS/kg (50-1200)
[2018-09-02 12:35] LABS: CREATININE,URINE RANDOM 18.9 mg/dL (30.0-125.0)
[2018-09-02 13:14] LABS: GLUCOMETER DEV NAME(LOC) 5S.1; GLUCOSE,POINT OF CARE 110 MG/DL (70-110)
[2018-09-02 13:34] LABS: PROTEIN,URINE RANDOM < 6 mg/dL (0-11.9); SODIUM,URINE RANDOM < 5 mmol/l (20-110)
[2018-09-02] MEDS: CefTRIAXone 1 GM/DEXTROSE 50 ML IV SCH (14:13)
[2018-09-02] MEDS: SODIUM CHLORIDE 0.9% 1,000 ML IV SCH (14:13)
[2018-09-02] MEDS: INSULIN LISPRO 100 UNITS/ML SQ PRN (20:56)
[2018-09-03] MEDS: SODIUM CHLORIDE 0.9% 1,000 ML IV SCH ×2 (03:09→15:00)
[2018-09-03] MEDS ORDERED: 0.9% SODIUM CHLORIDE 5 ML NEB SOLUTION NEB ONE ×5 (03:45→19:17)
[2018-09-03] MEDS: ALBUTEROL SULFATE 2.5 MG/0.5 ML NEB SOLUTION NEB SCH ×6 (03:52→23:00)
[2018-09-03 03:53] VITALS: BP 122/61
[2018-09-03 07:04] LABS: ANION GAP 10 mmol/L (8-16); CARBON DIOXIDE 25 mmol/L (22-29); CHLORIDE 98 mmol/L (98-107); CREATININE 0.84 mg/dL (0.60-1.30); GLOMERULAR FILTR. RATE CALC > 60 mL/min (>60); GLUCOSE,RANDOM 106 mg/dL (70-110); POTASSIUM 3.8 mmol/L (3.5-5.1); SODIUM SERUM 133 mmol/L (136-145); UREA NITROGEN, BLOOD 11 mg/dL (7-18)
[2018-09-03 07:12] LABS: CALCIUM, TOTAL 9.1 mg/dL (8.8-10.5)
[2018-09-03 08:30] VITALS: BP 139/74
[2018-09-03] MEDS: DOCUSATE SODIUM 100 MG CAPSULE PO SCH ×2 (08:32→20:40)
[2018-09-03] MEDS: FAMOTIDINE 20 MG TABLET PO SCH ×2 (08:32→20:40)
[2018-09-03] MEDS: HEPARIN SODIUM,PORCINE 5,000 UNITS/ML VIAL SQ SCH ×3 (08:33→23:50)
[2018-09-03 11:19] LABS: GLUCOMETER DEV NAME(LOC) 5S.1; GLUCOSE,POINT OF CARE 215 MG/DL (70-110)
[2018-09-03 11:19] LABS: GLUCOMETER DEV NAME(LOC) 5S.1; GLUCOSE,POINT OF CARE 111 MG/DL (70-110)
[2018-09-03 11:29] LABS: GLUCOMETER DEV NAME(LOC) 5S.2; GLUCOSE,POINT OF CARE 103 MG/DL (70-110)
[2018-09-03] MEDS: CefTRIAXone 1 GM/DEXTROSE 50 ML IV SCH (11:38)
[2018-09-03 12:09] VITALS: BP 128/66
[2018-09-03 16:19] VITALS: BP 123/79
[2018-09-03 17:14] LABS: GLUCOMETER DEV NAME(LOC) 5S.2; GLUCOSE,POINT OF CARE 108 MG/DL (70-110)
[2018-09-03 18:59] LABS: GLUCOMETER DEV NAME(LOC) 5S.1; GLUCOSE,POINT OF CARE 113 MG/DL (70-110)
[2018-09-03 19:28] VITALS: BP 149/96
[2018-09-03] MEDS ORDERED: SERTRALINE HCL 50 MG TABLET PO SCH (21:00)
[2018-09-03] MEDS: INSULIN LISPRO 100 UNITS/ML SQ PRN (21:38)
[2018-09-03 23:26] VITALS: BP 131/69
[2018-09-04] MEDS: ALBUTEROL SULFATE 2.5 MG/0.5 ML NEB SOLUTION NEB SCH ×4 (03:00→15:28)
[2018-09-04] MEDS: SODIUM CHLORIDE 0.9% 1,000 ML IV SCH ×2 (03:30→16:00)
[2018-09-04 04:05] VITALS: BP 148/91
[2018-09-04 06:51] LABS: BASOPHILS % (AUTO) 1.5 % (0.0-2.0); LYMPHOCYTES # (AUTO) 1.5 K/uL (1.0-4.8); LYMPHOCYTES % (AUTO) 35.6 % (22.0-44.0); MEAN CORPUSCULAR HEMOGLOBIN 24.2 pg (26.0-34.0); MEAN CORPUSCULAR HGB CONC 33.3 G/dL (31.0-37.0); MEAN CORPUSCULAR VOLUME 73 fL (80-100); MONOCYTES # (AUTO) 0.6 K/uL (0.1-1.0); MONOCYTES % (AUTO) 13.5 % (2.0-9.0); NEUTROPHILS # (AUTO) 1.4 K/uL (1.8-7.7); NEUTROPHILS % (AUTO) 33.1 % (40.0-70.0); PLATELET COUNT (AUTO) 237 K/uL (150-450); RED BLOOD CELL COUNT(AUTO) 4.97 MIL/uL (4.00-5.20); RED CELL DISTRIBUTION WIDTH 15.4 % (11.5-14.5)
[2018-09-04 06:54] LABS: EOSINOPHILS % (AUTO) 16.3 % (1.0-6.0)
[2018-09-04 07:20] LABS: ANION GAP 8 mmol/L (8-16); CALCIUM, TOTAL 8.9 mg/dL (8.8-10.5); CARBON DIOXIDE 25 mmol/L (22-29); CHLORIDE 102 mmol/L (98-107); GLOMERULAR FILTR. RATE CALC > 60 mL/min (>60); GLUCOSE,RANDOM 95 mg/dL (70-110); POTASSIUM 4.4 mmol/L (3.5-5.1); SODIUM SERUM 135 mmol/L (136-145); UREA NITROGEN, BLOOD 10 mg/dL (7-18)
[2018-09-04] MEDS ORDERED: 0.9% SODIUM CHLORIDE 5 ML NEB SOLUTION NEB ONE ×3 (07:30→13:36)
[2018-09-04 07:52] VITALS: BP 144/93
[2018-09-04 08:04] LABS: GLUCOMETER DEV NAME(LOC) 5S.2; GLUCOSE,POINT OF CARE 105 MG/DL (70-110)
[2018-09-04 08:04] LABS: GLUCOMETER DEV NAME(LOC) 5S.1; GLUCOSE,POINT OF CARE 179 MG/DL (70-110)
[2018-09-04] MEDS: DOCUSATE SODIUM 100 MG CAPSULE PO SCH (08:20)
[2018-09-04] MEDS: FAMOTIDINE 20 MG TABLET PO SCH (08:20)
[2018-09-04] MEDS: HEPARIN SODIUM,PORCINE 5,000 UNITS/ML VIAL SQ SCH ×2 (08:20→16:20)
[2018-09-04 12:14] VITALS: BP 137/89
[2018-09-04] MEDS: CefTRIAXone 1 GM/DEXTROSE 50 ML IV SCH (12:25)
[2018-09-04 14:19] LABS: GLUCOMETER DEV NAME(LOC) 5S.1; GLUCOSE,POINT OF CARE 130 MG/DL (70-110)
[2018-09-04 16:24] VITALS: BP 142/87
[2018-09-04] MEDS ORDERED: CIPR-278 PO (17:19)
[2018-09-04 22:09] LABS: GLUCOMETER DEV NAME(LOC) 5S.2; GLUCOSE,POINT OF CARE 105 MG/DL (70-110)
== END 2018-09-04 18:00 | disposition home or self-care (01) | DRG 52 ==
LOC: EMS 11:02 → 5S 16:18
PROVIDERS: ADMIT Internal Medicine; ATTEND Internal Medicine
DX: G93.41 Metabolic encephalopathy (principal); E87.1 Hypo-osmolality and hyponatremia; N39.0 Urinary tract infection, site not specified; N28.1 Cyst of kidney, acquired; E87.6 Hypokalemia; F17.210 Nicotine dependence, cigarettes, uncomplicated; E86.9 Volume depletion, unspecified; E66.9 Obesity, unspecified; E11.9 Type 2 diabetes mellitus without complications; E78.00 Pure hypercholesterolemia, unspecified; I10 Essential (primary) hypertension; F43.23 Adjustment disorder with mixed anxiety and depressed mood; Z79.899 Other long term (current) drug therapy; Z68.30 Body mass index [BMI] 30.0-30.9, adult; Z91.83 Wandering in diseases classified elsewhere; Z79.82 Long term (current) use of aspirin
CPT/HCPCS: 51702; 70450; 82570; 83036; 83735; 83930; 83935; 84156; 84295; 84300; 84443; 87086; 93005; 94640; 96361; 96372; 99291; G0378; G0480; J0696; J1200; J1630; J1644; J2060; J3480; J7030; J7040